=== PATIENT | female | born 1960 | race Caucasian/White ===

== ENCOUNTER 2017-09-07 08:48 | Day surgery (SDC) | payer BC, OTHER ==
--- NOTE | 2017-09-07 09:22 | OR ---
Anesthesia Pre Procedure Eval Date of Service: 09/07/17 Pre Procedure Evaluation: Last Vital Signs Temp 36.7 C 09/07/17 08:59 Pulse 73 09/07/17 08:59 Resp 16 09/07/17 08:59 BP 105/43 09/07/17 08:59 Pulse Ox 98 09/07/17 08:59 Anesthesia Pre Procedure Evaluation DATE: 09/07/2017 TIME: 9:20 AM INDICATIONS: Back and bilateral hip pain, history of back and radicular pain, multilevel disc bulge PAST MEDICAL HISTORY: This program and has had a long history of back with radicular pain. She has done very well with her home therapy and medication as needed however she occasionally requires an epidural injection which has been consistently helping her in the past. Her most recent epidural injection has been over 2 years ago and she has been doing very well up until the last few weeks. Her pain initiated in the bilateral hip areas and later developed into including back pain as well. History of GERD: No History of smoking: No History of sleep apnea: No EXAM: Heart regular; lungs clear ASSESSMENT OF MEDICAL STATUS: Appropriate candidate for epidural injection PLANNED PROCEDURE: Epidural steroid injection, lumbar. Home Medications: HOME MEDICATIONS Ibuprofen [Motrin] 800 mg PO TID PRN 05/02/15 [Last Taken Unknown]
[2017-09-07] MEDS ORDERED: DEXAMETHASONE SOD PHOSPHATE 10 MG/ML VIAL IJ ONE (09:37)
[2017-09-07] MEDS ORDERED: LIDOCAINE HCL/PF 5 ML VIAL IJ ONE (09:38)
[2017-09-07] MEDS ORDERED: IOPAMIDOL 20 ML VIAL IJ ONE (09:38)
--- NOTE | 2017-09-07 09:56 | OR ---
Anesthesia Procedure Note - Anesthesia Procedure Note Date of Service: 09/07/17 Narrative: Vital Signs - Last Taken Temp 36.7 C 09/07/17 09:50 Pulse 76 09/07/17 09:50 Resp 18 09/07/17 09:50 BP 91/59 09/07/17 09:50 Pulse Ox 99 09/07/17 09:50 O2 Oxygen Delivery Method Room Air 09/07/17 09:54 ANESTHESIA PROCEDURE NOTE Date of Procedure: 09/07/2017 Time of procedure: 9:35 AM. Performed by: Blas Jules CRNA, PACU RN, MSN Youth Teacher: Shirin Sanchez RN. Preprocedure diagnosis: Multilevel lumbar disc bulge, low back bilateral hip ( radicular ) pain. Post procedure diagnosis: Same. Procedure: Epidural Steroid Injection L3 4. Indications: Low-back and hip/radicular pain. Findings: See below. Details of the procedure: After the MRI report and films were reviewed, the patient was interviewed where risks and the procedure were explained. The patient was then brought to or 3 and was placed in the prone position. The back was prepped with DuraPrep and draped in a sterile fashion. The lumbar area was identified under fluoroscopy and the L3 4 right space was localized with 1% lidocaine solution. The epidural space was identified using loss of resistance technique using a #20-gauge Touhy needle. 1 mL of Isovue was injected while the C-arm was positioned in the lateral orientation. The C-arm was then readjusted to an AP view and Isovue 200 2 milliliters was injected demonstrating a spread at the affected area. Dexamethasone 10mg and lidocaine 1 % 5 mL was injected, stylette was replaced and the epidural needle removed. A Band-Aid was then applied to the injection site, patient was placed in a supine position for 5 minutes then returned to ASU with good relief of pain, from a 5/ 10 to 0/10. EBL: None. Energy: 12.8 Seconds, 3.35 mGy Fluids: N/A. Specimen: N/A. Post procedure condition: The patient tolerated the procedure well. No complications were noted. Thank you for this consultation. Blas Jules CRNA, MSN, PACU RN
[2017-09-07 10:22] VITALS: BP 111/50
== END 2017-09-07 08:49 | disposition home or self-care (01) ==
LOC: AMB 08:48
PROVIDERS: ATTEND Orthopaedic Surgery
PROC: 3E0R33Z Introduction of Anti-inflammatory into Spinal Canal, Percutaneous Approach (ICD-10-PCS; 2017-09-07)
PROC: B01BZZZ Fluoroscopy of Spinal Cord (ICD-10-PCS; 2017-09-07)
PROC: 3E0R3BZ Introduction of Anesthetic Agent into Spinal Canal, Percutaneous Approach (ICD-10-PCS; principal; 2017-09-07 10:45)
DX: M51.26 Other intervertebral disc displacement, lumbar region (principal)